=== PATIENT | female | born 1955 ===

== ENCOUNTER → 2023-10-06 11:07 | Outpatient (REF) | payer OTHER, SELFPAY ==
--- NOTE | 2023-10-06 11:14 | HM_ITS ---
Conclusion: 1. Patient was monitored for total period of 1 day and 23 hours 2. Baseline was normal sinus rhythm with average heart of 95 beats per minute 3. No significant pauses noted but frequent sinus tachycardia noted with 27% of time heart rate about 100 beats per minute 4. Rare PACs and PVCs noted with 1 SVT event at 138 beats per minute lasting for 6 beats 5. Patient marked the counter 16 times with symptoms of palpitations mostly correlating with sinus rhythm but also correlating with sinus tachycardia, PVCs and 1 episode of SVT. MTDD
== END ==
LOC: HO.CARD 11:07
PROVIDERS: Visit Provider Psychiatry & Neurology Neurology
DX: R55 Syncope and collapse (principal)
CPT/HCPCS: 93225

== ENCOUNTER → 2023-10-06 11:14 | Outpatient (BNV) | payer OTHER, SELFPAY | PROVIDERS: Visit Provider Internal Medicine Cardiovascular Disease | DX: R00.0 Tachycardia, unspecified (principal) | CPT/HCPCS: 93227 ==